=== PATIENT | male | born 1965 | race American Indian/Alaskan Native ===

== ENCOUNTER 2019-12-21 03:58 | Emergency (ER) | payer BC ==
--- NOTE | 2019-12-21 09:45 | Emergency Department Report ---
Chief Complaint: Extremity Injury, Lower Stated Complaint: RIGHT FOOT PAIN Time Seen by Provider: 12/21/19 08:21 - HPI History of Present Illness: This is a 54-year-old male who presents to the emergency room with a painful callus to right dorsal foot for 2 years. Patient states it flares every so many months. He denies follow-up with podiatry or PCP. Denies recent injury or diagnosis of diabetes. - ROS Review of Systems: Musculoskeletal: Right dorsal foot pain - Exam Vital Signs: Vital Signs 12/21/19 04:11 Temperature 98.4 F Pulse Rate 87 Respiratory 18 Rate Blood Pressure 195/106 O2 Sat by Pulse 99 Oximetry Physical Exam: Skin: 1 cm firm keratin nodule dorsolateral 3rd phalanx, ttp, no erythema, skin intact MSE screening note: Focused history and physical exam performed. Due to findings the following was ordered: ED Medical Decision Making - Medical Decision Making This is a 54 y.o. male that presents with painful callus to right dorsal foot for 2 years. Patient is stable and was examined by me. Blood pressure elevated with no prior history of hypertension. There is a 1 cm firm keratin nodule dorsolateral 3rd phalanx, ttp, no erythema, skin intact. Given antihypertensives. Blood pressure 164/94. Patient has asymptomatic hypertension. Start amlodipine 5 mg by mouth daily. Referral to PCP for continued care. Referral to podiatry for management of callus. Discussed plan with patient and agreed to plan. No further questions noted by the patient. Discharged home in stable condition. ED Disposition for MSE Clinical Impression: Asymptomatic hypertension, Right foot pain, Callus of foot Disposition: - TO HOME OR SELFCARE Is pt being admited?: No Condition: Stable Instructions: Hypertension (ED) Additional Instructions: Continue applying [id number] corn removal pads to area for comfort. Follow up with the creel cleaner from the list provided below in the referral section. I have also provided a list of primary care doctors for you to follow up with as well. Follow up with primary care doctor regarding your blood pr essure. Continue to monitor your blood pressure for 1-2 weeks. Prescriptions: Amlodipine Besylate [Norvasc] 5 mg PO DAILY #30 tablet Referrals: KELSEY BENJAMIN DPM [Staff Physician] - 3-5 Days EVERETT HA DPM [Staff Physician] - 3-5 Days CLARK CASTORENA MD [Staff Physician] - 3-5 Days LEVON CASAS MD [Staff Physician] - 3-5 Days [facility] [Provider Group] - 3-5 Days Forms: Work/School Release Form(ED), Accompanied Note Time of Disposition: 09:43
[2019-12-21] MEDS ORDERED: cloNIDine 0.2 MG TAB PO ONE (09:50)
[2019-12-21] MEDS ORDERED: cloNIDine 0.2 MG TAB ONE (09:53)
[2019-12-21 10:47] VITALS: BP 164/94
== END 2019-12-21 10:56 | disposition home or self-care (01) ==
LOC: ED 03:58
DX: I10 Essential (primary) hypertension (principal); M79.671 Pain in right foot; M25.774 Osteophyte, right foot
CPT/HCPCS: 99282